=== PATIENT | male | born 1955 | race Caucasian/White ===

== ENCOUNTER → 2022-10-06 | Outpatient (CLI) | payer MEDICARE, OTHER | END | disposition home or self-care (01) | LOC: CARD 09:30 | PROVIDERS: ATTEND Internal Medicine Cardiovascular Disease | DX: I08.0 Rheumatic disorders of both mitral and aortic valves (principal); I42.0 Dilated cardiomyopathy ==

== ENCOUNTER → 2022-11-04 | Outpatient (CLI) | payer MEDICARE, OTHER ==
[~2022-11-04] MED LIST: ENTRESTO 24 MG1 EACH PO; METOPROLOL SUCC50 M1 PO
== END | disposition home or self-care (01) ==
LOC: CARD 10-14 00:13
PROVIDERS: ATTEND Internal Medicine Cardiovascular Disease
DX: R94.39 Abnormal result of other cardiovascular function study (principal); I42.0 Dilated cardiomyopathy; R06.02 Shortness of breath

== ENCOUNTER → 2022-11-11 | Outpatient (CLI) | payer MEDICARE, OTHER ==
[2022-11-11 09:16] LABS: HEMATOCRIT 47.8 % (42.0-52.0)
[2022-11-11 10:21] LABS: BUN 12 mg/dl (9-23); POTASSIUM 4.1 mmol/L (3.4-5.1)
== END ==
LOC: LAB 08:30
PROVIDERS: ATTEND Internal Medicine Cardiovascular Disease
DX: R94.39 Abnormal result of other cardiovascular function study (principal); R06.02 Shortness of breath

== ENCOUNTER → 2024-01-13 | Outpatient (CLI) | payer MEDICARE, OTHER | END | disposition home or self-care (01) | LOC: CARD 01-05 12:00 | PROVIDERS: ATTEND Internal Medicine Cardiovascular Disease | DX: I08.1 Rheumatic disorders of both mitral and tricuspid valves (principal); I42.0 Dilated cardiomyopathy; I50.22 Chronic systolic (congestive) heart failure ==

== ENCOUNTER 2024-04-21 03:48 | Emergency (ER) | payer MEDICARE, OTHER ==
[~2024-04-21] VITALS: Wt 85.7 kg
== END 2024-04-21 06:41 | disposition home or self-care (01) ==
LOC: ED 03:48
DX: F43.9 Reaction to severe stress, unspecified (principal); F41.9 Anxiety disorder, unspecified; K21.9 Gastro-esophageal reflux disease without esophagitis; Z88.1 Allergy status to other antibiotic agents; Z88.8 Allergy status to other drugs, medicaments and biological substances